=== PATIENT | male | born 1940 | race Caucasian/White ===

== ENCOUNTER 2017-08-19 06:18 | Day surgery (SDC) | payer MEDICARE ==
[~2017-08-19] VITALS: Ht 172.7 cm; Wt 108.9 kg
[~2017-08-19 06:18] MED LIST: ADULT ASPIRIN E81 MG; FAMOTIDINE40 M1 PO; HYDROCHLOROT25 MG PO; LEVEMIR100 UNIT/M; LIPITOR20 M1 PO; LISINOPRIL20 MG PO; LYRICA50 MG PO; MAGNESIUM OXID400 M1; METOPROL TAR25 M1 PO; TRAMADOL HCL50 MG PO; TYLENOL 500MG TAB PO
[2017-08-19 08:01] VITALS: BP 159/72
== END 2017-08-19 08:30 | disposition home or self-care (01) ==
LOC: ORM 06:18
PROVIDERS: ATTEND Anesthesiology Pain Medicine
PROC: 3E0T33Z Introduction of Anti-inflammatory into Peripheral Nerves and Plexi, Percutaneous Approach (ICD-10-PCS; principal; 2017-08-19)
PROC: 3E0T3BZ Introduction of Anesthetic Agent into Peripheral Nerves and Plexi, Percutaneous Approach (ICD-10-PCS; 2017-08-19)
PROC: 3E0T33Z Introduction of Anti-inflammatory into Peripheral Nerves and Plexi, Percutaneous Approach (ICD-10-PCS; 2017-08-19)
PROC: 3E0T3BZ Introduction of Anesthetic Agent into Peripheral Nerves and Plexi, Percutaneous Approach (ICD-10-PCS; 2017-08-19)
DX: M12.9 Arthropathy, unspecified (principal); M51.36 Other intervertebral disc degeneration, lumbar region; M48.07 Spinal stenosis, lumbosacral region

== ENCOUNTER 2017-09-02 06:34 | Day surgery (SDC) | payer MEDICARE ==
[~2017-09-02] VITALS: Ht 172.7 cm; Wt 108.9 kg
[2017-09-02 08:44] VITALS: BP 122/61
== END 2017-09-02 09:03 | disposition home or self-care (01) ==
LOC: ORM 06:34
PROVIDERS: ATTEND Anesthesiology Pain Medicine
PROC: 3E0T33Z Introduction of Anti-inflammatory into Peripheral Nerves and Plexi, Percutaneous Approach (ICD-10-PCS; principal; 2017-09-02)
PROC: 3E0T3BZ Introduction of Anesthetic Agent into Peripheral Nerves and Plexi, Percutaneous Approach (ICD-10-PCS; 2017-09-02)
PROC: 3E0T33Z Introduction of Anti-inflammatory into Peripheral Nerves and Plexi, Percutaneous Approach (ICD-10-PCS; 2017-09-02)
PROC: 3E0T3BZ Introduction of Anesthetic Agent into Peripheral Nerves and Plexi, Percutaneous Approach (ICD-10-PCS; 2017-09-02)
PROC: 3E0T33Z Introduction of Anti-inflammatory into Peripheral Nerves and Plexi, Percutaneous Approach (ICD-10-PCS; 2017-09-02)
PROC: 3E0T3BZ Introduction of Anesthetic Agent into Peripheral Nerves and Plexi, Percutaneous Approach (ICD-10-PCS; 2017-09-02)
DX: M54.5 Low back pain (principal); M12.9 Arthropathy, unspecified; M51.36 Other intervertebral disc degeneration, lumbar region; M48.07 Spinal stenosis, lumbosacral region

== ENCOUNTER 2017-09-30 06:56 | Day surgery (SDC) | payer MEDICARE ==
[~2017-09-30] VITALS: Ht 172.7 cm; Wt 108.9 kg
[2017-09-30 08:59] VITALS: BP 140/82
== END 2017-09-30 09:00 | disposition home or self-care (01) ==
LOC: ORM 06:56
PROVIDERS: ATTEND Anesthesiology Pain Medicine
PROC: 3E0T3TZ Introduction of Destructive Agent into Peripheral Nerves and Plexi, Percutaneous Approach (ICD-10-PCS; principal; 2017-09-30)
DX: M54.5 Low back pain (principal); M53.3 Sacrococcygeal disorders, not elsewhere classified; M47.816 Spondylosis without myelopathy or radiculopathy, lumbar region

== ENCOUNTER 2017-10-14 06:41 | Day surgery (SDC) | payer MEDICARE ==
[~2017-10-14] VITALS: Ht 172.7 cm; Wt 108.9 kg
[2017-10-14 08:50] VITALS: BP 143/65
== END 2017-10-14 09:00 | disposition home or self-care (01) ==
LOC: ORM 06:41
PROVIDERS: ATTEND Anesthesiology Pain Medicine
PROC: 3E0T3TZ Introduction of Destructive Agent into Peripheral Nerves and Plexi, Percutaneous Approach (ICD-10-PCS; principal; 2017-10-14)
DX: M54.5 Low back pain (principal); M53.3 Sacrococcygeal disorders, not elsewhere classified; M47.816 Spondylosis without myelopathy or radiculopathy, lumbar region

== ENCOUNTER 2018-01-27 06:56 | Day surgery (SDC) | payer MEDICARE ==
[~2018-01-27] VITALS: Ht 172.7 cm; Wt 108.9 kg
[2018-01-27 11:00] VITALS: BP 191/100
== END 2018-01-27 09:20 | disposition home or self-care (01) ==
LOC: ORM 06:56
PROVIDERS: ATTEND Anesthesiology Pain Medicine
PROC: 3E0R33Z Introduction of Anti-inflammatory into Spinal Canal, Percutaneous Approach (ICD-10-PCS; principal; 2018-01-27)
PROC: B01B1ZZ Fluoroscopy of Spinal Cord using Low Osmolar Contrast (ICD-10-PCS; 2018-01-27)
DX: M48.07 Spinal stenosis, lumbosacral region (principal); M54.5 Low back pain
CPT/HCPCS: Q9967

== ENCOUNTER 2018-02-10 06:53 | Day surgery (SDC) | payer MEDICARE ==
[~2018-02-10] VITALS: Ht 170.2 cm; Wt 108.9 kg
[2018-02-10 10:37] VITALS: BP 182/99
== END 2018-02-10 09:05 | disposition home or self-care (01) ==
LOC: ORM 06:53
PROVIDERS: ATTEND Anesthesiology Pain Medicine
PROC: 3E0R33Z Introduction of Anti-inflammatory into Spinal Canal, Percutaneous Approach (ICD-10-PCS; principal; 2018-02-10)
PROC: B01B1ZZ Fluoroscopy of Spinal Cord using Low Osmolar Contrast (ICD-10-PCS; 2018-02-10)
DX: M48.07 Spinal stenosis, lumbosacral region (principal)
CPT/HCPCS: Q9967

== ENCOUNTER 2021-10-08 11:26 | Observation (INO) | payer MEDICARE ==
[~2021-10-08] VITALS: Ht 170.2 cm; Wt 86.0 kg
[2021-10-08 12:57] LABS: HEMATOCRIT 41.6 % (39.0-50.0); HEMOGLOBIN 14.3 g/dl (14.0-18.0); IMMATURE GRANULOCYTES 1.1 % (0.0-5.0); MEAN CELL VOLUME 102.5 fL CALC (80.0-100.0); MEAN CORPUSCULAR HGB 35.2 pG CALC (26.0-32.0); MEAN CORPUSCULAR HGB CONC 34.4 g/dL CAL (32.0-36.0); NEUT# 7.47 thou/uL (1.82-7.42); RED BLOOD COUNT 4.06 mill/uL (4.70-6.10); RED CELL DISTRI WIDTH 13.7 % (11.5-15.5)
[2021-10-08 13:06] LABS: ALBUMIN 4.3 g/dL (3.2-5.0); BILIRUBIN, TOTAL 0.7 mg/dL (0.0-1.4); CREATININE 2.3 mg/dL (0.7-1.3); POTASSIUM 4.3 mmol/l (3.5-5.1); TOTAL PROTEIN 9.2 g/dL (6.3-8.2)
[2021-10-08 13:39] LABS: URINE BILIRUBIN - DIPSTICK NEGATIVE (NEGATIVE); URINE BLOOD DIPSTICK TRACE-INTACT (NEGATIVE); URINE COLOR YELLOW; URINE GLUCOSE - DIPSTICK NEGATIVE (NEGATIVE); URINE KETONE TRACE mg/dL (NEGATIVE); URINE LEUK ESTERASE NEGATIVE (NEGATIVE); URINE PH 5.5 (4.5-8.0); URINE PROTEIN - DIPSTICK TRACE mg/dL (NEG-TRACE); URINE UROBILINOGEN - DIPSTICK 0.2 E.U./dL (0.2)
[2021-10-08 13:41] LABS: URINE NITRITE - DIPSTICK NEGATIVE (Negative)
[2021-10-08 17:06] VITALS: BP 123/72
[2021-10-08 18:47] VITALS: BP 97/51
[2021-10-09 05:57] LABS: HEMATOCRIT 37.1 % (39.0-50.0); HEMOGLOBIN 12.5 g/dl (14.0-18.0); MEAN CELL VOLUME 104.8 fL CALC (80.0-100.0); MEAN CORPUSCULAR HGB 35.3 pG CALC (26.0-32.0); MEAN CORPUSCULAR HGB CONC 33.7 g/dL CAL (32.0-36.0); RED BLOOD COUNT 3.54 mill/uL (4.70-6.10); RED CELL DISTRI WIDTH 13.8 % (11.5-15.5)
[2021-10-09 06:07] LABS: CREATININE 1.8 mg/dL (0.7-1.3); MAGNESIUM 1.7 mg/dL (1.6-2.3); POTASSIUM 4.3 mmol/l (3.5-5.1)
[2021-10-09 07:29] VITALS: BP 108/55
[2021-10-09 11:03] VITALS: BP 116/59
[2021-10-09 15:43] VITALS: BP 106/55
[2021-10-09 19:00] VITALS: BP 121/63
[2021-10-10] VITALS: BP 101/54
[2021-10-10 04:00] VITALS: BP 110/60
[2021-10-10 05:50] LABS: HEMATOCRIT 35.3 % (39.0-50.0); HEMOGLOBIN 11.9 g/dl (14.0-18.0); MEAN CELL VOLUME 106.3 fL CALC (80.0-100.0); MEAN CORPUSCULAR HGB 35.8 pG CALC (26.0-32.0); MEAN CORPUSCULAR HGB CONC 33.7 g/dL CAL (32.0-36.0); RED BLOOD COUNT 3.32 mill/uL (4.70-6.10); RED CELL DISTRI WIDTH 13.7 % (11.5-15.5)
[2021-10-10 05:58] LABS: CREATININE 1.4 mg/dL (0.7-1.3); MAGNESIUM 1.5 mg/dL (1.6-2.3); POTASSIUM 4.1 mmol/l (3.5-5.1)
[2021-10-10 08:10] VITALS: BP 91/53
[2021-10-10 11:07] VITALS: BP 88/53
[2021-10-10] MEDS ORDERED: OMNICEF300 MG PO (13:25)
[2021-10-10] MEDS ORDERED: ZITHROMAX250 MG PO (13:25)
== END 2021-10-10 13:30 | disposition home health service (06) ==
LOC: ED 11:26 → ED-I 14:39 → ED 14:53 → MS2 14:54
PROVIDERS: Emergency Medicine; Nurse Practitioner; ADMIT Hospitalist; ATTEND Hospitalist
DX: N17.9 Acute kidney failure, unspecified (principal); J18.9 Pneumonia, unspecified organism; E86.0 Dehydration; I10 Essential (primary) hypertension; E11.40 Type 2 diabetes mellitus with diabetic neuropathy, unspecified; E78.5 Hyperlipidemia, unspecified; K21.9 Gastro-esophageal reflux disease without esophagitis; Z95.1 Presence of aortocoronary bypass graft; Z79.4 Long term (current) use of insulin; Z99.3 Dependence on wheelchair; Z20.822 Contact with and (suspected) exposure to COVID-19
CPT/HCPCS: G0378; J3475

== ENCOUNTER 2023-10-27 21:09 | Inpatient (IN) | payer MEDICARE, MEDICAID ==
[~2023-10-27] VITALS: Ht 170.2 cm; Wt 86.6 kg
[2023-10-27] VITALS (8 sets, daily range): BP systolic 76–111; BP diastolic 46–65
[~2023-10-27 21:09] MED LIST changes: +LEVEMIR100 UNIT SC; -LEVEMIR100 UNIT/M; +OMNICEF300 MG PO; +ZITHROMAX250 MG PO
[2023-10-27] MEDS ORDERED: SODIUM CHLORIDE 0.9% 1,000 ML IV ONE (21:57)
[2023-10-27] MEDS ORDERED: SODIUM CHLORIDE 0.9% 1,000 ML BAG IV ONE (22:10)
[2023-10-27] MEDS ORDERED: ONDANSETRON HCl 4 MG/2 ML SDV IV ONE (22:10)
[2023-10-27 22:51] LABS: BASO% 0.1 % (0-3); EOS% 0.3 % (0-8); HEMATOCRIT 39.6 % (39.0-50.0); HEMOGLOBIN 13.4 g/dl (14.0-18.0); IMMATURE GRANULOCYTES 0.1 % (0.0-5.0); LYMPH% 24.4 % (15-41); MEAN CELL VOLUME 111.5 fL CALC (80.0-100.0); MEAN CORPUSCULAR HGB 37.7 pG CALC (26.0-32.0); MEAN CORPUSCULAR HGB CONC 33.8 g/dL CAL (32.0-36.0); NEUT# 4.7 thou/uL (1.82-7.42); NEUT% 69.1 % (42-76); RED BLOOD COUNT 3.55 mill/uL (4.70-6.10); RED CELL DISTRI WIDTH 13.6 % (11.5-15.5)
[2023-10-27 23:05] LABS: ALBUMIN 3.9 g/dL (3.2-5.0); ALKALINE PHOSPHATASE 185 u/l (38-126); BILIRUBIN, TOTAL 0.6 mg/dL (0.2-1.3); CHLORIDE 122 mmol/l (95-108); SGOT/AST 34 u/l (19-48); SODIUM 141 mmol/l (137-146)
[2023-10-27 23:13] LABS: BUN/CREATININE RATIO 30 (12-20 (CALC)); CREATININE 2.8 mg/dL (0.7-1.3); GFR FOR AFR.AMER. 26 ML/MIN (>=60 (CALC)); GFR OTHER RACES 22 ML/MIN (>=60 (CALC))
[2023-10-27 23:14] LABS: ANION GAP 17 (6-22 (CALC)); BUN 83 mg/dL (8-23); CARBON DIOXIDE 8 mmol/l (22-30); POTASSIUM 5.8 mmol/l (3.5-5.1); TOTAL PROTEIN 7.3 g/dL (6.3-8.2)
[2023-10-28] VITALS (119 sets, daily range): BP systolic 74–147; BP diastolic 27–116
[2023-10-28] MEDS ORDERED: AZITHROMYCIN 500 MG in SODIUM CHLORIDE 0.9% 250 ML IV ONE (00:30)
[2023-10-28] MEDS ORDERED: LACTATED RINGER'S 1,000 ML IV PRN ×2 (02:55→07:55)
[2023-10-28] MEDS ORDERED: CLARIFY DOSE IV PRN (03:10)
[2023-10-28 04:37] LABS: CREATININE 2.3 mg/dL (0.7-1.3)
[2023-10-28 04:39] LABS: POTASSIUM 5.6 mmol/l (3.5-5.1)
[2023-10-28] MEDS ORDERED: SODIUM ZIRCONIUM CYCLOSILICATE 10 GM PAK PO ONE (04:45)
[2023-10-28] MEDS ORDERED: ACETAMINOPHEN 325 MG/TAB PO PRN (04:50)
[2023-10-28] MEDS ORDERED: MAGNESIUM HYDROXIDE 30 ML UDC PO PRN (04:50)
[2023-10-28] MEDS ORDERED: SODIUM CHLORIDE 0.9% 1,000 ML IV ONE (04:50)
[2023-10-28] MEDS ORDERED: SODIUM CHLORIDE 0.9% 1,000 ML IV PRN ×2 (05:05→13:35)
[2023-10-28] MEDS ORDERED: ONDANSETRON HCl 4 MG/2 ML SDV IV PRN (05:05)
[2023-10-28] MEDS ORDERED: traMADol HCL 50 MG/TAB PO PRN (05:10)
[2023-10-28] MEDS ORDERED: DEXTROSE 250 ML IV PRN ×2 (05:10)
[2023-10-28] MEDS ORDERED: SODIUM CHLORIDE 0.9% 1,000 ML IV SCH ×2 (05:10→10:30)
[2023-10-28] MEDS ORDERED: Heparin SODIUM (Porcine) 5,000 UNITS/ML SDV SC SCH (06:00)
[2023-10-28] MEDS ORDERED: INSULIN LISPRO 100 UNITS/ML ML SC SCH (07:00)
[2023-10-28] MEDS ORDERED: PANTOPRAZOLE SODIUM Sesquihydr 40 MG/TAB PO SCH (09:00)
[2023-10-28] MEDS ORDERED: METOPROLOL TARTRATE 25 MG/TAB PO SCH (09:00)
[2023-10-28] MEDS ORDERED: SODIUM BICARBONATE 150 ML in DEXTROSE 5% 850 ML IV PRN (09:30)
[2023-10-28] MEDS ORDERED: DEXTROSE 5% 250 ML IV ONE (10:21)
[2023-10-28] MEDS ORDERED: NOREPINEPHRINE BITARTRATE 4 MG/VIAL SDV ONE (10:21)
[2023-10-28] MEDS ORDERED: NOREPINEPHRINE BITARTRATE 4 MG in DEXTROSE 5% 250 ML IV PRN (10:30)
[2023-10-28] MEDS ORDERED: SODIUM CHLORIDE 0.9% 500 ML IV SCH (11:00)
[2023-10-28 12:55] LABS: URINE BILIRUBIN - DIPSTICK Negative (NEGATIVE); URINE BLOOD DIPSTICK Moderate (NEGATIVE); URINE GLUCOSE - DIPSTICK Negative (NEGATIVE); URINE KETONE Trace mg/dL (NEGATIVE); URINE NITRITE - DIPSTICK Negative (Negative); URINE PH 5.5 (4.5-8.0); URINE PROTEIN - DIPSTICK 30 mg/dL (NEG-TRACE); URINE SPECIFIC GRAVITY 1.015; URINE UROBILINOGEN - DIPSTICK 0.2 E.U./dL (0.2)
[2023-10-28 12:57] LABS: URINE COLOR Yellow; URINE LEUK ESTERASE Small (NEGATIVE)
[2023-10-28 13:10] LABS: URINE BACTERIA FEW hpf; URINE SQUAMOUS EPITHELIAL CELL FEW EPI/hpf (0-FEW); URINE TRANSITIONAL EPI. CELLS FEW hpf
[2023-10-28 13:11] LABS: URINE HYALINE CAST FEW lpf (NONE-RARE)
[2023-10-28] MEDS ORDERED: SODIUM ZIRCONIUM CYCLOSILICATE 10 GM PAK PO SCH (15:00)
[2023-10-28 17:44] LABS: CREATININE 1.9 mg/dL (0.7-1.3)
[2023-10-28 17:45] LABS: POTASSIUM 4.4 mmol/l (3.5-5.1)
[2023-10-28] MEDS ORDERED: ATORVASTATIN CALCIUM 20 MG/TAB PO SCH (21:00)
[2023-10-28] MEDS ORDERED: INSULIN DETEMIR 100 UNITS/ML SC SCH (21:00)
[2023-10-28] MEDS ORDERED: ATORVASTATIN CALCIUM 10 MG/TAB PO SCH (21:00)
[2023-10-29] VITALS (143 sets, daily range): BP systolic 92–139; BP diastolic 37–99
[2023-10-29 06:20] LABS: BASO% 0.3 % (0-3); EOS% 2.2 % (0-8); HEMATOCRIT 29.6 % (39.0-50.0); HEMOGLOBIN 9.9 g/dl (14.0-18.0); IMMATURE GRANULOCYTES 0.2 % (0.0-5.0); LYMPH% 26.2 % (15-41); MEAN CELL VOLUME 110.9 fL CALC (80.0-100.0); MEAN CORPUSCULAR HGB 37.1 pG CALC (26.0-32.0); MEAN CORPUSCULAR HGB CONC 33.4 g/dL CAL (32.0-36.0); MONO% 6.3 % (2-13); NEUT# 3.92 thou/uL (1.82-7.42); NEUT% 64.8 % (42-76); RED BLOOD COUNT 2.67 mill/uL (4.70-6.10); RED CELL DISTRI WIDTH 13.6 % (11.5-15.5)
[2023-10-29 06:32] LABS: ALKALINE PHOSPHATASE 130 u/l (38-126); BUN 48 mg/dL (8-23); BUN/CREATININE RATIO 29 (12-20 (CALC)); CALCULATED LDLCHOLESTEROL 17 mg/dL (62-129 (CALC)); CHLORIDE 118 mmol/l (95-108); CREATININE 1.6 mg/dL (0.7-1.3); GFR FOR AFR.AMER. 50 ML/MIN (>=60 (CALC)); GFR OTHER RACES 41 ML/MIN (>=60 (CALC)); HDL CHOLESTEROL 29 mg/dL (39.0-59.0); MAGNESIUM 1.3 mg/dL (1.6-2.3); POTASSIUM 3.7 mmol/l (3.5-5.1); SGOT/AST 21 u/l (19-48); SODIUM 141 mmol/l (137-146); TOTAL CHOLESTEROL 58 mg/dl (0-199); TOTAL TRIGLYCERIDES 59 mg/dl (0-149); VLDL CHOLESTROL 12 mg/dl (0-38 (CALC))
[2023-10-29 06:42] LABS: ALBUMIN 2.5 g/dL (3.2-5.0); ANION GAP 4 (6-22 (CALC)); BILIRUBIN, TOTAL 0.3 mg/dL (0.2-1.3); CARBON DIOXIDE 23 mmol/l (22-30)
[2023-10-29] MEDS ORDERED: VANCOMYCIN HCL 1 GM in SODIUM CHLORIDE 0.9% 250 ML IV SCH ×2 (09:30→12:00)
[2023-10-30] VITALS (131 sets, daily range): BP systolic 91–163; BP diastolic 35–137
[2023-10-30 07:11] LABS: BASO% 0.2 % (0-3); EOS% 2.9 % (0-8); HEMATOCRIT 30.7 % (39.0-50.0); HEMOGLOBIN 10.4 g/dl (14.0-18.0); IMMATURE GRANULOCYTES 0.2 % (0.0-5.0); LYMPH% 26.5 % (15-41); MEAN CELL VOLUME 111.2 fL CALC (80.0-100.0); MEAN CORPUSCULAR HGB 37.7 pG CALC (26.0-32.0); MEAN CORPUSCULAR HGB CONC 33.9 g/dL CAL (32.0-36.0); MONO% 6.8 % (2-13); NEUT# 2.87 thou/uL (1.82-7.42); NEUT% 63.4 % (42-76); RED BLOOD COUNT 2.76 mill/uL (4.70-6.10); RED CELL DISTRI WIDTH 13.4 % (11.5-15.5)
[2023-10-30 07:17] LABS: ANION GAP 8 (6-22 (CALC)); BUN 30 mg/dL (8-23); BUN/CREATININE RATIO 23 (12-20 (CALC)); CARBON DIOXIDE 22 mmol/l (22-30); CHLORIDE 116 mmol/l (95-108); CREATININE 1.3 mg/dL (0.7-1.3); GFR FOR AFR.AMER. > 60 ML/MIN (>=60 (CALC)); GFR OTHER RACES 53 ML/MIN (>=60 (CALC)); POTASSIUM 3.9 mmol/l (3.5-5.1); SODIUM 141 mmol/l (137-146)
[2023-10-30] MEDS ORDERED: TAMSULOSIN HCL 0.4 MG CAP PO SCH (08:00)
[2023-10-31] VITALS (24 sets, daily range): BP systolic 115–170; BP diastolic 50–78
[2023-10-31 05:05] LABS: BASO% 0.2 % (0-3); EOS% 2.7 % (0-8); HEMATOCRIT 27.9 % (39.0-50.0); HEMOGLOBIN 9.6 g/dl (14.0-18.0); IMMATURE GRANULOCYTES 0.4 % (0.0-5.0); LYMPH% 27.8 % (15-41); MEAN CELL VOLUME 109.8 fL CALC (80.0-100.0); MEAN CORPUSCULAR HGB 37.8 pG CALC (26.0-32.0); MEAN CORPUSCULAR HGB CONC 34.4 g/dL CAL (32.0-36.0); MONO% 8.6 % (2-13); NEUT# 2.86 thou/uL (1.82-7.42); NEUT% 60.3 % (42-76); RED BLOOD COUNT 2.54 mill/uL (4.70-6.10); RED CELL DISTRI WIDTH 13.1 % (11.5-15.5)
[2023-10-31 05:35] LABS: ANION GAP 5 (6-22 (CALC)); BUN 21 mg/dL (8-23); BUN/CREATININE RATIO 18 (12-20 (CALC)); CARBON DIOXIDE 25 mmol/l (22-30); CHLORIDE 115 mmol/l (95-108); CREATININE 1.2 mg/dL (0.7-1.3); GFR FOR AFR.AMER. > 60 ML/MIN (>=60 (CALC)); GFR OTHER RACES 58 ML/MIN (>=60 (CALC)); POTASSIUM 4.1 mmol/l (3.5-5.1); SODIUM 140 mmol/l (137-146)
[2023-10-31] MEDS ORDERED: VANCOMYCIN HCL 1,250 MG in SODIUM CHLORIDE 0.9% 225 ML IV SCH (11:00)
[2023-11-01] VITALS (20 sets, daily range): BP systolic 110–152; BP diastolic 43–84
[2023-11-01 05:39] LABS: BASO% 0.4 % (0-3); EOS% 3.1 % (0-8); HEMATOCRIT 26.5 % (39.0-50.0); IMMATURE GRANULOCYTES 0.2 % (0.0-5.0); LYMPH% 27.6 % (15-41); MEAN CELL VOLUME 110.9 fL CALC (80.0-100.0); MEAN CORPUSCULAR HGB 37.7 pG CALC (26.0-32.0); MONO% 9.2 % (2-13); NEUT# 2.65 thou/uL (1.82-7.42); NEUT% 59.5 % (42-76); RED BLOOD COUNT 2.39 mill/uL (4.70-6.10); RED CELL DISTRI WIDTH 13.1 % (11.5-15.5)
[2023-11-01 05:54] LABS: ANION GAP 7 (6-22 (CALC)); BUN 16 mg/dL (8-23); BUN/CREATININE RATIO 13 (12-20 (CALC)); CARBON DIOXIDE 24 mmol/l (22-30); CHLORIDE 113 mmol/l (95-108); CREATININE 1.2 mg/dL (0.7-1.3); GFR FOR AFR.AMER. > 60 ML/MIN (>=60 (CALC)); GFR OTHER RACES 58 ML/MIN (>=60 (CALC)); SODIUM 140 mmol/l (137-146)
[2023-11-02] VITALS (8 sets, daily range): BP systolic 104–150; BP diastolic 56–68
[2023-11-02 07:38] LABS: BASO% 0.4 % (0-3); EOS% 3.1 % (0-8); HEMATOCRIT 31.5 % (39.0-50.0); HEMOGLOBIN 10.4 g/dl (14.0-18.0); IMMATURE GRANULOCYTES 0.4 % (0.0-5.0); LYMPH% 28.6 % (15-41); MEAN CELL VOLUME 110.9 fL CALC (80.0-100.0); MEAN CORPUSCULAR HGB 36.6 pG CALC (26.0-32.0); MONO% 7.4 % (2-13); NEUT# 2.68 thou/uL (1.82-7.42); NEUT% 60.1 % (42-76); RED BLOOD COUNT 2.84 mill/uL (4.70-6.10); RED CELL DISTRI WIDTH 13.3 % (11.5-15.5)
[2023-11-02 08:04] LABS: ANION GAP 7 (6-22 (CALC)); BUN 13 mg/dL (8-23); BUN/CREATININE RATIO 11 (12-20 (CALC)); CARBON DIOXIDE 26 mmol/l (22-30); CHLORIDE 111 mmol/l (95-108); CREATININE 1.2 mg/dL (0.7-1.3); GFR FOR AFR.AMER. > 60 ML/MIN (>=60 (CALC)); GFR OTHER RACES 58 ML/MIN (>=60 (CALC)); POTASSIUM 4.1 mmol/l (3.5-5.1); SODIUM 139 mmol/l (137-146)
[2023-11-03] MEDS ORDERED: SODIUM CHLORIDE 0.9% 10 ML SYR IV PRN (03:25)
[2023-11-03 03:56] VITALS: BP 154/73
[2023-11-03] MEDS ORDERED: SODIUM CHLORIDE 0.9% 10 ML SYR IV SCH (06:00)
[2023-11-03 06:52] VITALS: BP 145/64
[2023-11-03 06:57] LABS: BASO% 0.5 % (0-3); HEMATOCRIT 27.1 % (39.0-50.0); HEMOGLOBIN 9.2 g/dl (14.0-18.0); IMMATURE GRANULOCYTES 0.3 % (0.0-5.0); LYMPH% 33.1 % (15-41); MEAN CELL VOLUME 111.1 fL CALC (80.0-100.0); MEAN CORPUSCULAR HGB 37.7 pG CALC (26.0-32.0); MEAN CORPUSCULAR HGB CONC 33.9 g/dL CAL (32.0-36.0); MONO% 10.5 % (2-13); NEUT# 1.96 thou/uL (1.82-7.42); NEUT% 52.6 % (42-76); RED BLOOD COUNT 2.44 mill/uL (4.70-6.10); RED CELL DISTRI WIDTH 13.1 % (11.5-15.5)
[2023-11-03 07:44] LABS: CREATININE 1.4 mg/dL (0.7-1.3); POTASSIUM 4.2 mmol/l (3.5-5.1)
[2023-11-03 10:44] VITALS: BP 146/68
[2023-11-03 14:54] VITALS: BP 137/63
[2023-11-03 19:44] VITALS: BP 163/77
[2023-11-04] VITALS (10 sets, daily range): BP systolic 130–156; BP diastolic 59–76
[2023-11-04 07:28] LABS: BASO% 0.2 % (0-3); EOS% 3.2 % (0-8); HEMATOCRIT 26.9 % (39.0-50.0); HEMOGLOBIN 9.1 g/dl (14.0-18.0); IMMATURE GRANULOCYTES 0.5 % (0.0-5.0); LYMPH% 29.3 % (15-41); MEAN CELL VOLUME 112.6 fL CALC (80.0-100.0); MEAN CORPUSCULAR HGB 38.1 pG CALC (26.0-32.0); MEAN CORPUSCULAR HGB CONC 33.8 g/dL CAL (32.0-36.0); MONO% 11.5 % (2-13); NEUT# 2.46 thou/uL (1.82-7.42); NEUT% 55.3 % (42-76); RED BLOOD COUNT 2.39 mill/uL (4.70-6.10); RED CELL DISTRI WIDTH 13.3 % (11.5-15.5)
[2023-11-04 07:52] LABS: ANION GAP 6 (6-22 (CALC)); CARBON DIOXIDE 27 mmol/l (22-30); CHLORIDE 111 mmol/l (95-108); SODIUM 139 mmol/l (137-146)
[2023-11-04 07:56] LABS: ALBUMIN 2.4 g/dL (3.2-5.0); BUN 17 mg/dL (8-23); CARBON DIOXIDE 29 mmol/l (22-30); CHLORIDE 110 mmol/l (95-108); CREATININE 1.3 mg/dL (0.7-1.3); GFR FOR AFR.AMER. > 60 ML/MIN (>=60 (CALC)); GFR OTHER RACES 53 ML/MIN (>=60 (CALC)); POTASSIUM 4.4 mmol/l (3.5-5.1); SODIUM 140 mmol/l (137-146)
[2023-11-04 07:57] LABS: BUN 16 mg/dL (8-23); BUN/CREATININE RATIO 13 (12-20 (CALC)); CREATININE 1.2 mg/dL (0.7-1.3); GFR FOR AFR.AMER. > 60 ML/MIN (>=60 (CALC)); GFR OTHER RACES 58 ML/MIN (>=60 (CALC))
[2023-11-04] MEDS ORDERED: DAPTOMYCIN500 MG IV (09:28)
[2023-11-04] MEDS ORDERED: SODIUM CHLORIDE 0.9% 10 ML SYR IV PRN (14:40)
[2023-11-04] MEDS ORDERED: HEPARIN SODIUM FLUSH (PORCINE) 10 UNIT/ML 5ML SYR IV PRN (14:40)
[2023-11-05 00:31] VITALS: BP 151/75
[2023-11-05 03:21] VITALS: BP 123/60
[2023-11-05 05:34] LABS: BASO% 0.5 % (0-3); EOS% 2.9 % (0-8); HEMOGLOBIN 8.9 g/dl (14.0-18.0); IMMATURE GRANULOCYTES 0.2 % (0.0-5.0); LYMPH% 34.2 % (15-41); MEAN CORPUSCULAR HGB 36.9 pG CALC (26.0-32.0); MONO% 9.6 % (2-13); NEUT# 2.14 thou/uL (1.82-7.42); NEUT% 52.6 % (42-76); RED BLOOD COUNT 2.41 mill/uL (4.70-6.10); RED CELL DISTRI WIDTH 13.3 % (11.5-15.5)
[2023-11-05 05:50] LABS: ANION GAP 4 (6-22 (CALC)); BUN 19 mg/dL (8-23); BUN/CREATININE RATIO 15 (12-20 (CALC)); CARBON DIOXIDE 30 mmol/l (22-30); CHLORIDE 110 mmol/l (95-108); CREATININE 1.3 mg/dL (0.7-1.3); GFR FOR AFR.AMER. > 60 ML/MIN (>=60 (CALC)); GFR OTHER RACES 53 ML/MIN (>=60 (CALC)); POTASSIUM 4.3 mmol/l (3.5-5.1); SODIUM 139 mmol/l (137-146)
[2023-11-05 07:43] VITALS: BP 131/65
[2023-11-05 10:58] VITALS: BP 108/48
[2023-11-05 15:20] VITALS: BP 136/92
[2023-11-05 20:17] VITALS: BP 150/62
[2023-11-06] VITALS (8 sets, daily range): BP systolic 130–150; BP diastolic 48–79
[2023-11-06 04:44] LABS: BASO% 0.2 % (0-3); EOS% 3.1 % (0-8); HEMOGLOBIN 9.1 g/dl (14.0-18.0); IMMATURE GRANULOCYTES 0.2 % (0.0-5.0); LYMPH% 35.8 % (15-41); MEAN CORPUSCULAR HGB 37.8 pG CALC (26.0-32.0); MEAN CORPUSCULAR HGB CONC 33.7 g/dL CAL (32.0-36.0); MONO% 10.3 % (2-13); NEUT# 2.45 thou/uL (1.82-7.42); NEUT% 50.4 % (42-76); RED BLOOD COUNT 2.41 mill/uL (4.70-6.10); RED CELL DISTRI WIDTH 13.2 % (11.5-15.5)
[2023-11-06 04:52] LABS: ANION GAP 8 (6-22 (CALC)); BUN 21 mg/dL (8-23); BUN/CREATININE RATIO 16 (12-20 (CALC)); CARBON DIOXIDE 26 mmol/l (22-30); CHLORIDE 110 mmol/l (95-108); CREATININE 1.3 mg/dL (0.7-1.3); GFR FOR AFR.AMER. > 60 ML/MIN (>=60 (CALC)); GFR OTHER RACES 53 ML/MIN (>=60 (CALC)); POTASSIUM 4.7 mmol/l (3.5-5.1); SODIUM 139 mmol/l (137-146)
[2023-11-06] MEDS ORDERED: TAMSULOSIN HCL0.4 MG PO (11:52)
[2023-11-06] MEDS ORDERED: HEPARIN SODIUM FLUSH (PORCINE) 10 UNIT/ML 5ML SYR IV PRN (16:10)
[2023-11-06] MEDS ORDERED: SODIUM CHLORIDE 0.9% 10 ML SYR IV PRN (16:10)
[2023-11-07 00:07] VITALS: BP 138/61
[2023-11-07 04:07] VITALS: BP 138/70
[2023-11-07 06:45] LABS: BASO% 0.5 % (0-3); HEMOGLOBIN 8.6 g/dl (14.0-18.0); IMMATURE GRANULOCYTES 0.5 % (0.0-5.0); LYMPH% 33.2 % (15-41); MEAN CELL VOLUME 112.6 fL CALC (80.0-100.0); MEAN CORPUSCULAR HGB 37.2 pG CALC (26.0-32.0); MEAN CORPUSCULAR HGB CONC 33.1 g/dL CAL (32.0-36.0); NEUT# 2.28 thou/uL (1.82-7.42); NEUT% 52.8 % (42-76); RED BLOOD COUNT 2.31 mill/uL (4.70-6.10); RED CELL DISTRI WIDTH 13.3 % (11.5-15.5)
[2023-11-07 07:00] LABS: ANION GAP 7 (6-22 (CALC)); BUN 20 mg/dL (8-23); BUN/CREATININE RATIO 15 (12-20 (CALC)); CARBON DIOXIDE 29 mmol/l (22-30); CHLORIDE 108 mmol/l (95-108); CREATININE 1.3 mg/dL (0.7-1.3); GFR FOR AFR.AMER. > 60 ML/MIN (>=60 (CALC)); GFR OTHER RACES 53 ML/MIN (>=60 (CALC)); POTASSIUM 4.5 mmol/l (3.5-5.1); SODIUM 139 mmol/l (137-146)
[2023-11-07 07:12] VITALS: BP 150/71
[2023-11-07 10:49] VITALS: BP 98/43
[2023-11-07 15:00] VITALS: BP 100/45
== END 2023-11-07 15:26 | disposition home or self-care (01) | DRG 871 ==
LOC: ED 21:09 → ED-I 22:31 → ED 22:31 → ED-I 10-28 01:20 → ED 10-28 04:39 → ED-I 10-28 04:40 → ICU 10-28 12:18 → MS2 10-28 15:07 → ICU 10-28 15:07 → MS2 11-01 18:07
PROVIDERS: Family Medicine; Internal Medicine Nephrology; Nurse Practitioner Family; ADMIT Student in an Organized Health Care Education/Training Program; ATTEND Student in an Organized Health Care Education/Training Program
PROC: 02HV33Z Insertion of Infusion Device into Superior Vena Cava, Percutaneous Approach (ICD-10-PCS; principal; 2023-10-28)
PROC: 3E043XZ Introduction of Vasopressor into Central Vein, Percutaneous Approach (ICD-10-PCS; 2023-10-28)
PROC: 0T9B70Z Drainage of Bladder with Drainage Device, Via Natural or Artificial Opening (ICD-10-PCS; 2023-10-28)
PROC: 02HV33Z Insertion of Infusion Device into Superior Vena Cava, Percutaneous Approach (ICD-10-PCS; 2023-11-04)
PROC: B518ZZA Fluoroscopy of Superior Vena Cava, Guidance (ICD-10-PCS; 2023-11-04)
DX: A41.1 Sepsis due to other specified staphylococcus (principal); R65.21 Severe sepsis with septic shock; N17.9 Acute kidney failure, unspecified; E87.20 Acidosis, unspecified; E86.0 Dehydration; E87.5 Hyperkalemia; E86.9 Volume depletion, unspecified; I12.9 Hypertensive chronic kidney disease with stage 1 through stage 4 chronic kidney disease, or unspecified chronic kidney disease; E11.22 Type 2 diabetes mellitus with diabetic chronic kidney disease; N18.31 Chronic kidney disease, stage 3a; I95.9 Hypotension, unspecified; R33.9 Retention of urine, unspecified; E78.5 Hyperlipidemia, unspecified; E11.40 Type 2 diabetes mellitus with diabetic neuropathy, unspecified; E86.1 Hypovolemia; I25.10 Atherosclerotic heart disease of native coronary artery without angina pectoris; E11.59 Type 2 diabetes mellitus with other circulatory complications; D64.9 Anemia, unspecified; H91.90 Unspecified hearing loss, unspecified ear; S00.83XA Contusion of other part of head, initial encounter; W18.11XA Fall from or off toilet without subsequent striking against object, initial encounter; Y92.002 Bathroom of unspecified non-institutional (private) residence as the place of occurrence of the external cause; Z95.1 Presence of aortocoronary bypass graft; Z20.822 Contact with and (suspected) exposure to COVID-19
CPT/HCPCS: G0328; J0878; J3370

== ENCOUNTER 2024-05-04 21:15 | Observation (INO) | payer MEDICARE ==
[~2024-05-04] VITALS: Ht 170.2 cm; Wt 74.0 kg
[~2024-05-04 21:15] MED LIST changes: +DAPTOMYCIN500 MG IV; +TAMSULOSIN HCL0.4 MG PO
[2024-05-04 21:28] VITALS: BP 101/51
[2024-05-04 21:30] VITALS: BP 105/41
[2024-05-04] MEDS ORDERED: SODIUM CHLORIDE 0.9% 1,000 ML IV ONE (21:45)
[2024-05-04] MEDS ORDERED: ONDANSETRON HCl 4 MG/2 ML SDV IV ONE (21:45)
[2024-05-04] MEDS ORDERED: MORPHINE SULFATE 4 MG/ML VIAL IV ONE (21:45)
[2024-05-04 21:57] LABS: BASO% 0.4 % (0-3); IMMATURE GRANULOCYTES 0.1 % (0.0-5.0); LYMPH% 30.1 % (15-41); MEAN CORPUSCULAR HGB 33.7 pG CALC (26.0-32.0); MEAN CORPUSCULAR HGB CONC 33.2 g/dL CAL (32.0-36.0); MONO% 6.7 % (2-13); NEUT# 4.15 thou/uL (1.82-7.42); NEUT% 60.7 % (42-76); RED BLOOD COUNT 3.59 mill/uL (4.70-6.10); RED CELL DISTRI WIDTH 14.4 % (11.5-15.5)
[2024-05-04 22:01] VITALS: BP 151/68
[2024-05-04 22:02] LABS: HEMATOCRIT 36.4 % (39.0-50.0); HEMOGLOBIN 12.1 g/dl (14.0-18.0); MEAN CELL VOLUME 101.4 fL CALC (80.0-100.0)
[2024-05-04 22:14] LABS: ALBUMIN 3.8 g/dL (3.2-5.0); ALKALINE PHOSPHATASE 132 u/l (38-126); BILIRUBIN, TOTAL 0.5 mg/dL (0.2-1.3); CHLORIDE 118 mmol/l (95-108); SGOT/AST 31 u/l (19-48); SODIUM 143 mmol/l (137-146); TOTAL PROTEIN 7.1 g/dL (6.3-8.2)
[2024-05-04 22:21] LABS: ANION GAP 13 (6-22 (CALC)); BUN 63 mg/dL (8-23); BUN/CREATININE RATIO 27 (12-20 (CALC)); CARBON DIOXIDE 18 mmol/l (22-30); CREATININE 2.3 mg/dL (0.7-1.3); ESTIMATED GFR 27 ML/MIN (>=90 (CALC)); POTASSIUM 5.6 mmol/l (3.5-5.1)
[2024-05-04 22:31] VITALS: BP 111/46
[2024-05-04 23:00] VITALS: BP 112/89
[2024-05-04] MEDS ORDERED: VITAMIN D-32000 UNI1 (23:00)
[2024-05-05] VITALS (15 sets, daily range): BP systolic 89–155; BP diastolic 42–74
[2024-05-05] MEDS ORDERED: CALCIUM GLUCONATE 2 GM in SODIUM CHLORIDE 0.9% 100 ML IV ONE (02:05)
[2024-05-05] MEDS ORDERED: SODIUM CHLORIDE 0.9% 1,000 ML IV ONE ×2 (02:05)
[2024-05-05] MEDS ORDERED: DIATRIZOATE MEGLUMINE & SODIUM 30 ML/BTL BTL PO ONE (02:10)
[2024-05-05 02:40] LABS: MAGNESIUM 2.1 mg/dL (1.6-2.3)
[2024-05-05] MEDS ORDERED: SODIUM CHLORIDE 0.9% 0 ML IV ONE (03:15)
[2024-05-05] MEDS ORDERED: MAGNESIUM HYDROXIDE 30 ML UDC PO PRN (03:15)
[2024-05-05] MEDS ORDERED: FAMOTIDINE 10MG/ML 2ML SDV IV PRN (03:15)
[2024-05-05] MEDS ORDERED: ONDANSETRON 4 MG/TAB ODT PO PRN (03:15)
[2024-05-05] MEDS ORDERED: IBUPROFEN 800 MG/TAB PO PRN (03:15)
[2024-05-05] MEDS ORDERED: ONDANSETRON HCl 4 MG/2 ML SDV IV PRN (03:15)
[2024-05-05] MEDS ORDERED: ALUM & MAG HYDROX-SIMETHICONE 30 ML PO PRN (03:15)
[2024-05-05] MEDS ORDERED: CALCIUM GLUCONATE 1 GM/10 ML VIAL IV ONE (03:23)
[2024-05-05] MEDS ORDERED: SODIUM CHLORIDE 0.9% 100 ML IV ONE (03:23)
[2024-05-05 03:30] LABS: CREATININE 2.1 mg/dL (0.7-1.3); POTASSIUM 5.3 mmol/l (3.5-5.1)
[2024-05-05] MEDS ORDERED: DEXTROSE 5% / 0.9% NACL 1,000 ML IV PRN (07:55)
[2024-05-05] MEDS ORDERED: FAMOTIDINE 20 MG/TAB PO SCH (09:00)
[2024-05-05] MEDS ORDERED: PNEUMOCOCCAL 20-VALENT CONJUGA 0.5 ML/DOSE INJ IM SCH (09:00)
[2024-05-05] MEDS ORDERED: SODIUM ZIRCONIUM CYCLOSILICATE 10 GM PAK PO SCH (09:00)
[2024-05-05] MEDS ORDERED: MECLIZINE HCL 25 MG/TAB PO SCH (09:30)
[2024-05-05] MEDS ORDERED: ATORVASTATIN CALCIUM 20 MG/TAB PO SCH (17:00)
[2024-05-05 21:22] LABS: URINE BILIRUBIN - DIPSTICK Negative (NEGATIVE); URINE BLOOD DIPSTICK Large (NEGATIVE); URINE GLUCOSE - DIPSTICK Negative (NEGATIVE); URINE KETONE Negative (NEGATIVE); URINE LEUK ESTERASE Negative (NEGATIVE); URINE NITRITE - DIPSTICK Negative (Negative); URINE PH 5.5 (4.5-8.0); URINE PROTEIN - DIPSTICK 30 mg/dL (NEG-TRACE); URINE UROBILINOGEN - DIPSTICK 0.2 E.U./dL (0.2)
[2024-05-05 21:24] LABS: URINE COLOR Yellow
[2024-05-05 21:29] LABS: URINE RBC 25-50 RBC/hpf (0-5); URINE RENAL EPITHELIAL CELLS FEW hpf; URINE WBC 0-2 WBC/hpf (0-5)
[2024-05-06] VITALS (7 sets, daily range): BP systolic 123–145; BP diastolic 46–64
[2024-05-06 06:11] LABS: BASO% 0.3 % (0-3); EOS% 2.7 % (0-8); HEMATOCRIT 37.2 % (39.0-50.0); HEMOGLOBIN 12.1 g/dl (14.0-18.0); IMMATURE GRANULOCYTES 0.2 % (0.0-5.0); LYMPH% 30.1 % (15-41); MEAN CELL VOLUME 104.2 fL CALC (80.0-100.0); MEAN CORPUSCULAR HGB 33.9 pG CALC (26.0-32.0); MEAN CORPUSCULAR HGB CONC 32.5 g/dL CAL (32.0-36.0); MONO% 7.4 % (2-13); NEUT# 3.93 thou/uL (1.82-7.42); NEUT% 59.3 % (42-76); RED BLOOD COUNT 3.57 mill/uL (4.70-6.10); RED CELL DISTRI WIDTH 14.5 % (11.5-15.5)
[2024-05-06 06:37] LABS: BILIRUBIN, TOTAL 0.5 mg/dL (0.2-1.3); CREATININE 1.4 mg/dL (0.7-1.3); MAGNESIUM 1.6 mg/dL (1.6-2.3); POTASSIUM 4.4 mmol/l (3.5-5.1); TOTAL PROTEIN 5.9 g/dL (6.3-8.2)
[2024-05-06] MEDS ORDERED: FARXIGA10 MG PO (09:07)
[2024-05-06] MEDS ORDERED: LISINOPRIL20 M1 PO (09:08)
[2024-05-06] MEDS ORDERED: LEVOTHYROXIN100 MCG PO (09:09)
[2024-05-06] MEDS ORDERED: D350 MCG PO (09:11)
[2024-05-06] MEDS ORDERED: B121000 MC1 PO (09:13)
[2024-05-06] MEDS ORDERED: LISINOPRIL 20 MG/TAB PO SCH (13:30)
[2024-05-06] MEDS ORDERED: MECLIZINE HCL 25 MG/TAB PO SCH (14:00)
[2024-05-07 03:44] VITALS: BP 127/64
[2024-05-07 05:02] LABS: BASO% 0.2 % (0-3); IMMATURE GRANULOCYTES 0.2 % (0.0-5.0); LYMPH% 33.5 % (15-41); MEAN CELL VOLUME 103.4 fL CALC (80.0-100.0); MEAN CORPUSCULAR HGB 33.5 pG CALC (26.0-32.0); MEAN CORPUSCULAR HGB CONC 32.4 g/dL CAL (32.0-36.0); NEUT# 3.42 thou/uL (1.82-7.42); NEUT% 54.1 % (42-76); RED BLOOD COUNT 3.58 mill/uL (4.70-6.10); RED CELL DISTRI WIDTH 14.4 % (11.5-15.5)
[2024-05-07 05:12] LABS: ALBUMIN 2.9 g/dL (3.2-5.0); BILIRUBIN, TOTAL 0.6 mg/dL (0.2-1.3); CREATININE 1.2 mg/dL (0.7-1.3); MAGNESIUM 1.4 mg/dL (1.6-2.3); POTASSIUM 4.6 mmol/l (3.5-5.1); TOTAL PROTEIN 5.8 g/dL (6.3-8.2)
[2024-05-07 07:07] VITALS: BP 151/70
[2024-05-07] MEDS ORDERED: LEVOTHYROXINE SODIUM 100 MCG TAB PO SCH (09:00)
[2024-05-07] MEDS ORDERED: KEFLEX500 MG PO (09:27)
[2024-05-07] MEDS ORDERED: MAGNESIUM SULFATE HEPTAHYDRATE 50 ML IV SCH (09:30)
[2024-05-07 11:11] VITALS: BP 132/62
== END 2024-05-07 13:20 | disposition home or self-care (01) ==
LOC: ED 21:15 → ED-I 05-05 02:50 → ED 05-05 03:16 → MS2 05-05 03:17
PROVIDERS: Internal Medicine; Nurse Practitioner Family; ADMIT Internal Medicine; ATTEND Internal Medicine
DX: N17.9 Acute kidney failure, unspecified (principal); E86.0 Dehydration; K56.7 Ileus, unspecified; N39.0 Urinary tract infection, site not specified; E87.5 Hyperkalemia; I10 Essential (primary) hypertension; E11.40 Type 2 diabetes mellitus with diabetic neuropathy, unspecified; I25.10 Atherosclerotic heart disease of native coronary artery without angina pectoris; L98.9 Disorder of the skin and subcutaneous tissue, unspecified; R91.1 Solitary pulmonary nodule; E78.5 Hyperlipidemia, unspecified; K21.9 Gastro-esophageal reflux disease without esophagitis; Z91.81 History of falling; Z95.1 Presence of aortocoronary bypass graft; Z85.828 Personal history of other malignant neoplasm of skin
CPT/HCPCS: J3475